=== PATIENT | female | born 1965 | race African-American/Black ===

== ENCOUNTER 2021-03-29 15:11 | Emergency (ER) | payer SELFPAY ==
[~2021-03-29] VITALS: Ht 167.6 cm; Wt 139.7 kg
--- NOTE | 2021-03-29 15:12 | NUR ---
PT BIBRA FROM THE STREETS TO ER BED 13. PT IS DEAF COMUNICATING BY HAND SIGNAL. PT IS STATING THAT SHE HAS A CHEMICAL IMBALANCE AND NEEDS A SHOT. PT IS WEARING A HOSPITAL GOWN FROM A DIFFERENT PATIENT. PT HAS STABLE VITALS. NAD NOTED. AWAITING MD LAKE.
--- NOTE | 2021-03-29 16:12 | NUR ---
DR BAILON AT BEDSIDE FOR EVAL.
--- NOTE | 2021-03-29 16:20 | NUR ---
URINE SPECIMEN COLLECTED AND SENT TO LAB.
--- NOTE | 2021-03-29 16:24 | NUR ---
FOREST RANGER AT BEDSIDE FOR BLOOD DRAW.
[2021-03-29 16:26] LABS: BILIRUBIN,URINE Negative (NEGATIVE); COLOR,URINE YELLOW (YELLOW); LEUKOCYTE ESTERASE ,URINE Small (NEGATIVE); NITRITE, URINE Negative (NEGATIVE); PROTEIN,URINE Negative (NEGATIVE); UGLUCOSE Negative (NEGATIVE); UROBILINOGEN,URINE 0.2 EU/dL (0.2)
[2021-03-29 16:29] LABS: BACTERIA,URINE Few /HPF (None Seen); RBC,URINE NONE SEEN /HPF (0-2); SQUAMOUS EPITHELIAL CELL,UR Few /HPF (None Seen)
[2021-03-29 16:32] LABS: BASOPHILS # (AUTO) 0.1 K/uL (0.0-0.2); BASOPHILS % (AUTO) 0.8 % (0.0-2.0); EOSINOPHILS % (AUTO) 1.8 % (0.0-6.0); HEMATOCRIT 38 % (33-45); HEMOGLOBIN 12.2 g/dL (11.5-14.8); LYMPHOCYTES # (AUTO) 2.2 K/uL (0.8-4.8); LYMPHOCYTES % (AUTO) 25.3 % (20.0-44.0); MEAN CORPUSCULAR HGB CONC 32 g/dl (31.0-36.0); MEAN CORPUSCULAR VOLUME 87 fL (82-100); MONOCYTES # (AUTO) 0.6 K/uL (0.1-1.30); MONOCYTES % (AUTO) 7.1 % (2.0-12.0); NEUTROPHILS # (AUTO) 5.7 K/uL (1.8-8.9); PLATELET COUNT (AUTO) 264 K/uL (150-450); RED BLOOD CELL COUNT(AUTO) 4.34 MIL/uL (4.0-5.2); WHITE BLOOD COUNT (AUTO) 8.8 K/uL (4.3-11.0)
[2021-03-29 16:41] LABS: CALCIUM, SERUM 10.1 mg/dL (8.5-10.1); CARBON DIOXIDE 26 mmol/L (21-32); CHLORIDE 103 mmol/L (98-107); CREATININE 0.8 mg/dL (0.6-1.3); GLUCOSE 108 mg/dL (74-106); POTASSIUM 3.5 mmol/L (3.5-5.1); SODIUM SERUM 140 mmol/L (136-145); UREA NITROGEN, BLOOD 13 mg/dL (7-18)
[2021-03-29 16:48] LABS: ALANINE AMINOTRANSFERASE 23 U/L (12-78); ALBUMIN 3.7 g/dL (3.4-5.0); ALCOHOL, BLOOD < 3 mg/dL (0-0); ALKALINE PHOSPHATASE 84 U/L (46-116); ASPARTATE AMINOTRANSFERASE 16 U/L (15-37); BILIRUBIN,DIRECT 0.1 mg/dL (0.0-0.2); BILIRUBIN,TOTAL 0.3 mg/dL (0.2-1.0)
[2021-03-29 16:49] LABS: ACETAMINOPHEN < 2 ug/ml (10-30)
--- NOTE | 2021-03-29 18:48 | NUR ---
PT PROVIDED W. TAXI VOUCHER AND HOMELESS REFFERALS. PT DISCHARGE IN STABLE CONDITION.
[2021-03-29 18:50] VITALS: BP 135/60
--- NOTE | 2021-03-31 09:55 | NUR ---
Water Commissioner note: SS requested for psych/placement. SW was unable to interview pt as the pt had already been discharged. No further SS intervention at this time.
== END 2021-03-29 18:50 | disposition home or self-care (01) ==
LOC: ER 15:15
DX: Z00.8 Encounter for other general examination (principal)
CPT/HCPCS: 36415; 80048-TC; 80076-TC; 81001; 85025-TC; 87086-TC; G0480